=== PATIENT | male | born 1970 | race African-American/Black ===

== ENCOUNTER 2020-01-11 06:30 | Emergency (ER) | payer OTHER ==
[2020-01-11 06:35] VITALS: TEMP 98.1
--- NOTE | 2020-01-11 07:18 | ED ---
Upper Extremity HPI - General Chief Complaint: Extremity Injury, Upper Stated Complaint: right shoulder pain Time Seen by Provider: 01/11/20 06:40 Source: patient, family, RN notes reviewed Mode of arrival: ambulatory Limitations: no limitations - History of Present Illness Initial Comments: This a 41-year-old male presents emergency Department chief complaint of left shoulder pain. Patient states she's had on-and-off issues with her left shoulder. Patient states his worsen. Patient also states she has pain in his left elbow. He states is worse with any movement. He is left-hand dominant and does a lot of lifting. Any lifting. No paresthesias no definite weakness chest pain. Patient denies any chest pain shortness breath headache or dizziness no neck pain or neck stiffness. - Related Data Previous Rx's Medication Instructions Recorded Ibuprofen [Motrin] 600 mg PO Q8HR PRN #20 tab 01/11/20 predniSONE 50 mg PO DAILY #5 tab 01/11/20 Allergies Allergy/AdvReac Type Severity Reaction Status Date / Time No Known Allergies Allergy Verified 01/11/20 06:35 Review of Systems ROS Statement: Those systems with pertinent positive or pertinent negative responses have been documented in the HPI. ROS Other: All systems not noted in ROS Statement are negative. Past Medical History Past Medical History: Hypertension History of Any Multi-Drug Resistant Organisms: None Reported Past Surgical History: No Surgical Hx Reported Past Psychological History: No Psychological Hx Reported Smoking Status: Never smoker Past Alcohol Use History: Occasional Past Drug Use History: Marijuana General Exam Limitations: no limitations General appearance: alert, in no apparent distress Head exam: Present: atraumatic, normocephalic, normal inspection Eye exam: Present: normal appearance, PERRL, EOMI. Absent: scleral icterus, conjunctival injection, periorbital swelling Neck exam: Present: normal inspection, full ROM. Absent: tenderness, meningismus, lymphadenopathy Respiratory exam: Present: normal lung sounds bilaterally. Absent: respiratory distress, wheezes, rales, rhonchi, stridor Cardiovascular Exam: Present: regular rate, normal rhythm, normal heart sounds. Absent: systolic murmur, diastolic murmur, rubs, gallop, clicks Extremities exam: Present: other (There is some tenderness anterior surface of the left shoulder, pain with range of motion, no vascular intact, there is tend erness over the lateral epicondyle region there is pain with wrist flexion- extension pronation supination neurovascular intact) Neurological exam: Present: alert, oriented X3, CN II-XII intact, reflexes normal. Absent: motor sensory deficit Skin exam: Present: warm, dry, intact, normal color. Absent: rash Course Vital Signs 01/11/20 06:31 Temperature 98.1 F Pulse Rate 68 Respiratory 20 Rate Blood Pressure 151/89 O2 Sat by Pulse 99 Oximetry Medical Decision Making - Medical Decision Making 49-year-old presented for left shoulder pain. Patient x-ray reviewed no acute abnormality. Patient has left shoulder tenderness, left lateral epicondylitis. Patient discharged in stable condition with anti-inflammatories. She'll follow-up with PCP and orthopedics and return for any worsening symptoms. Disposition Clinical Impression: Left shoulder tendinitis, Lateral epicondylitis, left elbow Disposition: HOME SELF-CARE Condition: Stable Instructions (If sedation given, give patient instructions): Tennis Elbow (ED), Tendinitis (ED) Additional Instructions: Please return to the Emergency Department if symptoms worsen or any other concerns. Prescriptions: Ibuprofen [Motrin] 600 mg PO Q8HR PRN #20 tab PRN Reason: Pain predniSONE 50 mg PO DAILY #5 tab Is patient prescribed a controlled substance at d/c from ED?: No Referrals: None,Stated [Primary Care Provider] - 1-2 days Pato Lowe DO [Doctor of Osteopathic Medicine] - 1-2 days Time of Disposition: 08:12
--- NOTE | 2020-01-11 07:35 | XR ---
EXAMINATION TYPE: XR shoulder complete LT DATE OF EXAM: 01/11/2020 COMPARISON: NONE HISTORY: Pain TECHNIQUE: Shoulder examined in 3 views FINDINGS: The humeral head articulates with the glenoid. The acromio-clavicular junction is normal. No acute fractures or dislocations are evident. A follow up study can be performed 7-10 days from acute trauma for continued pain. IMPRESSION: 1. Normal three-view left Shoulder
[2020-01-11 09:01] VITALS: BP 132/90; PULSE 55; RESP 18
== END 2020-01-11 09:00 | disposition home or self-care (01) ==
LOC: EC 06:30
DX: M77.9 Enthesopathy, unspecified (principal); M77.12 Lateral epicondylitis, left elbow
CPT/HCPCS: 99283